=== PATIENT | male | born 1965 | race African-American/Black ===

== ENCOUNTER → 2016-08-29 | Outpatient (CLI) | payer OTHER ==
[~2016-08-29] MED LIST: ASCORBIC ACID500 MG PO; COLACE100 MG PO; NORCO 10-325 T1 EACH PO; NORCO 5-325 TA1 EACH PO; PERCOCET 5-3251 EACH PO; VITAMIN E400 UNI2 PO
== END | disposition disaster alternative care site (69) ==
LOC: GLAB 10:00
DX: Z87.891 Personal history of nicotine dependence (principal)
CPT/HCPCS: G0480

== ENCOUNTER 2016-09-20 15:00 | Inpatient (IN) | payer OTHER ==
[~2016-09-20] VITALS: Ht 175.3 cm; Wt 90.3 kg
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
--- NOTE | ~2016-09-20 | DS ---
PATIENT'S NAME: CHERRY ADKINS [facility] AGE: 50 Y [address] ROOM: [address] [address] LOCATION: [facility] ADMIT DATE: 09/21/2016 Discharge Summary DISCHARGE DATE: 09/24/2016 FAMILY PHYSICIAN: David Guzmán MD ATTENDING PHYSICIAN: Opal Campuzano DIAGNOSIS: Disk herniation, cervical 4-5, and stenosis with myelopathy and pain. HOSPITAL COURSE: He was admitted to the hospital. Diskectomy at cervical 4-5 with meticulous decompression and reconstruction with allograft and anterior fusion with plate fixation, posterior laminoplasty from cervical 3 to cervical 7. No complications. Mobilized in [place] collar. Full strength. Symmetric facies. Good voice. Took p.o. Voided. Mobilized. Pain controlled with oral medicines. Ready for discharge to home on September 24. DISCHARGE INSTRUCTIONS: Discharged home on a regular diet. Activity: Light. Wear the collar. Change dressing each day. DISCHARGE MEDICATIONS: 1. [place]. 2. Percocet. 3. Colace. 4. Vitamin E. 5. Vitamin C. FOLLOWUP: Will follow up with Dr. Campuzano in his office on October 03, 2016, at 1 p.m. X-rays will be taken at noon at [facility] with diagnosis of status post cervical 4-5 fusion and laminoplasty. X-rays to include an upright AP and lateral cervical spine in the collar. OPAL CAMPUZANO MD DPM/modl /[id number] d: 09/24/16 1521 t: 09/25/16 1837, DISCHARGE SUMMARY
[~2016-09-20 15:00] MED LIST changes: -COLACE100 MG PO; -NORCO 10-325 T1 EACH PO; -PERCOCET 5-3251 EACH PO
--- NOTE | 2016-09-21 17:58 | NUR ---
Pt here at 1720 from PACU. Pt alert, orient, drowsy. He had long surgery. He had 15 ml (1500 mcg of fentanyl) in OR and 100 mcg in recovery. Pt needed jaw lift in PACU for airway. Percocet at 1600. Pt rates pain posterior neck 9 and anterior neck 6. Hard collar on. Has anterior and posterior neck dressings. Anterior has sm amt drng and some antiseptic stain. posterior dressing has dime size drng on it. CSM arms seems normal. Raises both arms. Moderate bilat squeezes and denies numbness or tingling. Moves legs and feet. Pt HOB to be 45 degrees. Maza catheter in place. Has Salinae lock and running IV. Pt put on ETCO2 due to many narcotics. O2 on at 2 liters. Pt sips water without problems. Voice is a whisper at this time. BP was elevated on 2nd check but now 134/92. Betadine drng on bilat head tong sites. EBL was 650 ml.
--- NOTE | 2016-09-22 04:10 | NUR ---
POD#1 ACDF C4-5 & PCDF 5-7, HARD COLLAR IN PLACE, BILATERAL MORMONISM TONG SITES WITH NO BLEEDING, ANTERIOR DSG MARKED ON THE LEFT/BETADINE ON THE RIGHT, POSTERIOR MARKED WITH QUARTER SIZED OLD DRAINAGE, KATRINA VAC FROM POSTERIOR SITE WITH 130ML OUT THIS SHIFT, GOOD CSMS BUE/BLE, UP WITH 1 SBA/FWW/GAIT BELT AND DID VERY WELL, VS WNL, ON 2L PER NC FOR SUPPORT MOST OF THE SHIFT DUE TO HIGH NARCOTIC IN PACU AND ON ETCO2 AND O2 TITRATED DOWN @0300. TOLERATED FLUIDS AFTER SOME N/V WITH 300 EMEMIS AT THE FIRST OF THE SHIFT. BYNUM IN PLACE, BM THIS SHIFT, LEFT HAND PIV RUNNING LR @125HR DUE TO POOR INTAKE AND RIGHT HAND PIV SALINE LOCKED. ACUTE/CHRONIC PAIN CONTROLLED 11/02 WITH PERCOCET LD@0130 AND DILAUDID IVP GIVEN X 1 AT BEGINNING OF SHIFT WITH GOOD RESULTS. SPOUSE IN ROOM WITH PATIENT. AND WILL REASSESS BEFORE SHIFT CHANGE
--- NOTE | 2016-09-22 16:39 | NUR ---
patient reluctant to ambulate, did walk in [facility] x 1 with walker, ambulate to bathroom. percocet for pain last dose at 1515. hard collar in place. hemovac intact. dressing anterior neck changed, srinivas intact. posterior dressing marked drainage. byers removed, has voided since adequate amounts. csm adequate.
--- NOTE | 2016-09-23 03:25 | NUR ---
Significant Event: PATIENT ALERT AND ORIENTED X 3. VSS. TAKING PO AND VOIDING WITHOUT DIFFICULTY. UP WITH 1 ASSIST/WALKER/GB - VERY SLOW AND NEEDS ENCOURAGEMENT. ANTERIOR AND POSTERIOR NECK DRESSING C/D/I. HEMOVAC PATENT - 30 ML OUT THIS SHIFT. HARD COLLAR ON AT ALL TIMES. PAIN CONTROLLED WITH PERCOCET 1 TAB PO Q 3 HOURS LAST AT 0600. TONG SITES TO HEAD PRESENT - NO REDNESS OR SWELLING NOTED. SALINE LOCKS PATENT TO BILATERAL HANDS. SIGNIFICANT OTHER AT BEDSIDE. CSM'S WNL TO UPPER AND LOWER EXT. PLEASANT AND COOPERTIVE WITH CARES. POSSIBLE DISMISSAL TO HOME TODAY. Follow up:
--- NOTE | 2016-09-23 06:43 | NUR ---
[id number] Supervised [facility] Transit Specialist.
--- NOTE | 2016-09-23 11:30 | NUR ---
SPOKE TO PATIENT AND HIS SPOUSE REGARDING CM AND OUR ROLE. PATIENT LIVES IN OWN HOME WITH SPOUSE AND IS PLANNING ON RETURNING THERE ONCE HE IS READY FOR DISCHARGE. PATIENT ANTICIPATES THAT HE WILL NEED A FRONT WHEELED WALKER.I GAVE HIM LIST OF DME PLACES THAT HE CAN GET A WALKER AND HIS SPOUSE IS GOING TO CHECK ON THIS.
--- NOTE | 2016-09-23 16:02 | NUR ---
Significant Event: AOx3. VSS. CSm WNL. Hard collar on at all times. Hemovac drain removed today. Dressing to posterior and anterior neck is C/D/I. Takes Percocet Q 3hrs PRN. Up with walker SBA. Voids without difficulty. Plans on going home tomorrow. Follow up:
--- NOTE | 2016-09-24 04:18 | NUR ---
Significant Event: Dressings x2 are clean, dry and intact. CSM WNL. Voids without difficulty. SBA. Percocet last at 0338. Gave prune juice, refused ducolax suppository, passing gas. Follow up:
[2016-09-24] MEDS ORDERED: COLACE100 MG PO (12:57)
[2016-09-24] MEDS ORDERED: NORCO 10-325 T1 EACH PO (12:58)
[2016-09-24] MEDS ORDERED: PERCOCET 5-3251 EACH PO (12:59)
--- NOTE | 2016-09-24 16:34 | NUR ---
Pt discharged to go home with spouse. Pt alert and oriented. He has been up room and up [facility] with standby asst and gait belt and does well. CSM upper and lower extremities WNL. Pt has hard collar on. Pt and shown how to change and clean pads. Pt has anterior and posterior neck incisions both intact with srinivas, edges approximated well, no redness or swelling or drng. Dressings changed and pt sent a few dressings and shower guards. Pt rates pain usually around 6 with some relief with percocet. Pt has pain mostly posterior incision. Uses IS at 2000. Voids well. Passes flatus. No BM yet but enc to take Milk of Magnesia or other over the counter laxative at home. Pt has all belongings. Pt and spouse verbalize understanding of discharge instructions, pad changes, collar use, dressing changes, when to call Dr, Physician followu up, DVT prevention, activity. Pt discharged per wheelchair in stable condition to go home with .
== END 2016-09-24 14:15 | disposition disaster alternative care site (69) | DRG 455 ==
LOC: G3N 09-21 05:36
PROVIDERS: ADMIT Orthopaedic Surgery
PROC: 0PU30KZ Supplement Cervical Vertebra with Nonautologous Tissue Substitute, Open Approach (ICD-10-PCS; principal; 2016-09-22)
PROC: 0RT30ZZ Resection of Cervical Vertebral Disc, Open Approach (ICD-10-PCS; principal; 2016-09-22)
PROC: 0RG20Z1 (ICD-10-PCS; principal; 2016-09-22)
PROC: 0RG10Z0 (ICD-10-PCS; principal; 2016-09-22)
DX: M50.021 Cervical disc disorder at C4-C5 level with myelopathy (principal); M48.02 Spinal stenosis, cervical region; Z87.891 Personal history of nicotine dependence
CPT/HCPCS: C1713; J0171; J0690; J1100; J1170; J2001; J2250; J2405; J3010; J7120

== ENCOUNTER → 2016-10-03 | Outpatient (CLI) | payer OTHER ==
[~2016-10-03] MED LIST changes: +COLACE100 MG PO; +NORCO 10-325 T1 EACH PO; +PERCOCET 5-3251 EACH PO
== END ==
LOC: GRAD 08:00
DX: Z47.89 Encounter for other orthopedic aftercare (principal); Z98.890 Other specified postprocedural states